=== PATIENT | male | born 1980 | race Caucasian/White ===

== ENCOUNTER 2019-12-09 21:39 | Emergency (ER) | payer OTHER ==
[~2019-12-09] VITALS: Ht 172.7 cm; Wt 83.9 kg
[2019-12-09 21:56] VITALS: BP 110/75
[2019-12-09] MEDS ORDERED: NS 1000ML 1,000 ML STA (22:02)
--- NOTE | 2019-12-09 22:02 | ER.PDOC ---
General Chief Complaint: Requesting Medical Care Stated Complaint: ABD PAIN Time seen by MD: 21:55 Source: patient Exam Limitations: no limitations History of Present Illness Initial Comments Pt c/o persistent thirst, generalized malaise, abdominal discomfort x 4 days. Today he noted discharge from his penis (possible exposure to STD) Timing/Duration: 1 week Severity/Quality: moderate Radiation: no radiation Associated Symptoms: denies symptoms Allergies: Coded Allergies: No Known Allergies (Unverified , 12/09/19) Vital Signs First Vital Signs Date Time Temp Pulse Resp B/P (MAP) Pulse Ox O2 Delivery O2 Flow Rate FiO2 12/09/19 21:56 98.1 75 16 12/09/19 21:56 97 12/09/19 21:56 110/75 (87) Room Air Last Vital Signs Date Time Temp Pulse Resp B/P (MAP) Pulse Ox O2 Delivery O2 Flow Rate FiO2 12/09/19 21:56 98.1 75 16 110/75 (87) 97 Room Air Past Medical History Medical History: no pertinent history Surgical History: no surgical history Constitutional: malaise EENTM: no symptoms reported Respiratory: no symptoms reported Cardiovascular: no symptoms reported Gastrointestinal: abdominal pain Musculoskeletal: no symptoms reported Skin: no symptoms reported Physical Exam General Appearance: No Apparent Distress, WD/WN Respiratory: lungs clear, normal breath sounds, no respiratory distress, no accessory muscle use, respiratory distress Cardiovascular: Regular Rate, Rhythm Gastrointestinal: Non Tender, Hypoactive bowel sounds Extremities: Non-Tender, Normal Inspection, No Pedal Edema Neurologic/Psychiatric: No Motor/Sensory Deficits, Alert, Normal Mood/Affect Skin: Normal Color, Warm/Dry Lymphatic: No Adenopathy Results/Orders Results/Orders Orders - PABLO RENTERIA DO Cbc With Auto Diff (12/09/19 22:02) Comprehensive Metabolic Panel (12/09/19 22:02) Amylase (12/09/19 22:02) Lipase (12/09/19 22:02) Helicobacter Pylori (12/09/19 22:02) Urinalysis (12/09/19 22:02) Saline Lock (12/09/19 22:02) 0.9 % Sodium Chloride (Ns 1000ml) (12/09/19 22:02) Ondansetron Hcl/Pf (Zofran) (12/09/19 22:30) Ceftriaxone Sodium (Rocephin) (12/09/19 22:30) Azithromycin (Zithromax) (12/09/19 22:30) Ceftriaxone Sodium (Rocephin) (12/09/19 23:01) Vital Signs Date Time Temp Pulse Resp B/P (MAP) Pulse Ox O2 Delivery O2 Flow Rate FiO2 12/09/19 21:56 98.1 75 16 110/75 (87) 97 Room Air 12/09/19 21:56 98.1 75 16 97 12/09/19 21:56 98.1 75 16 Administered Medications Medications (Trade) Dose Ordered Sig/Mariela Route PRN Reason Start Time Stop Time Status Last Admin Dose Admin Ceftriaxone Sodium 1 gm/ Sodium Chloride 100 ml @ 100 mls/hr STAT IV 12/09/19 22:30 01/08/20 22:29 UNV 12/09/19 23:10 100 MLS/HR Ondansetron HCl (Zofran) 4 mg STAT ONCE IV 12/09/19 22:30 12/09/19 22:31 UNV 12/09/19 23:10 4 MG Sodium Chloride 1,000 ml @ 0 mls/hr Q0M STAT IV 12/09/19 22:02 12/09/19 22:03 UNV 12/09/19 23:10 1,200 MLS/HR Laboratory Tests Test 12/09/19 22:15 White Blood Count 9.0 10^3/uL (4.5-11.0) Red Blood Count 4.93 10^6/uL (4.50-5.90) Hemoglobin 15.0 g/dL (13.9-16.3) Hematocrit 41.3 % (37.0-53.0) Mean Corpuscular Volume 83.8 fL (78-100) Mean Corpuscular Hemoglobin 30.4 pg (26-34) Mean Corpuscular Hemoglobin Concent 36.3 g/dL (33-36.5) Red Cell Distribution Width 12.0 % (11.5-14.5) Platelet Count 283 10^3/uL (150-400) Mean Platelet Volume 8.8 fL (7.8-11.0) Neutrophils (%) (Auto) 52.6 % (41.0-85.0) Lymphocytes (%) (Auto) 38.0 % (24.0-44.0) Monocytes (%) (Auto) 7.1 % (5.0-12.0) Neutrophils # (Auto) 4.7 10^3/uL (1.8-7.7) Lymphocytes # (Auto) 3.43 10^3/uL1 (1.0-4.8) Monocytes # (Auto) 0.6 10^3/uL (0.3-0.8) Absolute Immature Granulocyte (auto 0.02 10^3 u/L (0-2) Absolute Eosinophils (auto) 0.2 10^3/uL (0.0-0.2) Immature Granulocytes % 0.20 % (0.00-0.50) Eosinophils % 1.8 % (0.0-5.0) Basophils % 0.3 % (0.0-0.2) H Basophils # 0.0 10^3/uL (0.0-0.1) Sodium Level 140 mmol/L (132-145) Potassium Level 3.8 mmol/L (3.6-5.2) Chloride Level 105.0 mmol/L (96-109) Carbon Dioxide Level 26.7 mmol/L (20.0-32) Anion Gap 12.1 Blood Urea Nitrogen 14 mg/dL (7-18) Creatinine 1.06 mg/dL (0.59-1.40) Estimated GFR () 94.6 (>/=60) Est GFR (CKD-EPI)(Non-Afr Egyptian) 78.2 (>/=60) BUN/Creatinine Ratio 13.0 Glucose Level 92 mg/dL (70-110) Calcium Level 8.5 mg/dL (8.4-10.5) Total Bilirubin 0.4 mg/dL (0.2-1.0) Aspartate Amino Transferase (AST) 19 U/L (0-35) Alanine Aminotransferase (ALT) 24 U/L (12-78) Alkaline Phosphatase 87 U/L (50-136) Total Protein 6.8 g/dL (6.4-8.2) Albumin 3.9 g/dL (3.4-5.0) Globulin 2.9 Amylase Level 41 U/L (25-115) Lipase 155 U/L (114-286) Helicobacter pylori Screen NEGATIVE (NEGATIVE) Progress Progress patient refused Azithromycin. We will RX doxy to cover potential chlamydia. Labs return normal. Course Vitals & review Data Vital Sign - Last 24 Hours 12/09/19 12/09/19 12/09/19 21:56 21:56 21:56 Temp 98.1 98.1 98.1 Pulse 75 75 75 Resp 16 16 16 B/P (MAP) 110/75 (87) Pulse Ox 97 97 O2 Delivery Room Air Laboratory Tests Test 12/09/19 22:15 White Blood Count 9.0 10^3/uL Red Blood Count 4.93 10^6/uL Hemoglobin 15.0 g/dL Hematocrit 41.3 % Mean Corpuscular Volume 83.8 fL Mean Corpuscular Hemoglobin 30.4 pg Mean Corpuscular Hemoglobin Concent 36.3 g/dL Red Cell Distribution Width 12.0 % Platelet Count 283 10^3/uL Mean Platelet Volume 8.8 fL Neutrophils (%) (Auto) 52.6 % Lymphocytes (%) (Auto) 38.0 % Monocytes (%) (Auto) 7.1 % Neutrophils # (Auto) 4.7 10^3/uL Lymphocytes # (Auto) 3.43 10^3/uL1 Monocytes # (Auto) 0.6 10^3/uL Absolute Immature Granulocyte (auto 0.02 10^3 u/L Absolute Eosinophils (auto) 0.2 10^3/uL Immature Granulocytes % 0.20 % Eosinophils % 1.8 % Basophils % 0.3 % Basophils # 0.0 10^3/uL Sodium Level 140 mmol/L Potassium Level 3.8 mmol/L Chloride Level 105.0 mmol/L Carbon Dioxide Level 26.7 mmol/L Anion Gap 12.1 Blood Urea Nitrogen 14 mg/dL Creatinine 1.06 mg/dL Estimated GFR () 94.6 Est GFR (CKD-EPI)(Non-Afr Egyptian) 78.2 BUN/Creatinine Ratio 13.0 Glucose Level 92 mg/dL Calcium Level 8.5 mg/dL Total Bilirubin 0.4 mg/dL Aspartate Amino Transf (AST/SGOT) 19 U/L Alanine Aminotransferase (ALT/SGPT) 24 U/L Alkaline Phosphatase 87 U/L Total Protein 6.8 g/dL Albumin 3.9 g/dL Globulin 2.9 Amylase Level 41 U/L Lipase 155 U/L Helicobacter pylori Screen NEGATIVE Current Medications Medications (Trade) Dose Ordered Sig/Mariela PRN Reason Start Time Stop Time Status Last Admin Ceftriaxone Sodium 1 gm/ Sodium Chloride 100 ml @ 100 mls/hr STAT 12/09/19 22:30 01/08/20 22:29 UNV 12/09/19 23:10 Sodium Chloride 1,000 ml @ 0 mls/hr Q0M STAT 12/09/19 22:02 12/09/19 22:03 UNV 12/09/19 23:10 Departure Time of Disposition: 23:50 Disposition: 01 HOME, SELF-CARE Impression: Primary Impression: Malaise and fatigue Additional Impression: Possible exposure to STD Condition: Improved Patient Instructions: Fatigue Referrals: ALTON PARRA (PCP) PRIMARY CARE PROVIDER Additional Instructions: Take the antibiotic as prescribed until all gone. Drink plenty of fluids. Return to ER if symptoms worsen. Follow up with your doctor. Duration or Time Spent with Pa: 15 min Problem Qualifiers PABLO RENTERIA DO Dec 09, 2019 22:02
[2019-12-09 22:20] LABS: BASOPHIL % 0.3 % (0.0-0.2); EOSINOPHIL # 0.2 10^3/uL (0.0-0.2); EOSINOPHIL % 1.8 % (0.0-5.0); LYMPHOCYTES # 3.43 10^3/uL1 (1.0-4.8); MEAN CORP HGB 30.4 pg (26-34); MONOCYTES # 0.6 10^3/uL (0.3-0.8); MONOCYTES % 7.1 % (5.0-12.0); NEUTROPHIL # 4.7 10^3/uL (1.8-7.7); NEUTROPHILS % 52.6 % (41.0-85.0); PLATELET COUNT 283 10^3/uL (150-400)
[2019-12-09] MEDS ORDERED: ZITHROMAX PO ONE (22:30)
[2019-12-09] MEDS ORDERED: ZOFRAN IV ONE (22:30)
[2019-12-09] MEDS ORDERED: ROCEPHIN 1 GM in NS 100ML 100 ML IV SCH (22:30)
[2019-12-09 22:52] LABS: CALCIUM 8.5 mg/dL (8.4-10.5); CARBON DIOXIDE 26.7 mmol/L (20.0-32)
[2019-12-09 23:00] VITALS: BP 115/69
[2019-12-09] MEDS ORDERED: NS 1000ML 1,000 ML ONE (23:00)
[2019-12-09] MEDS ORDERED: ZITHROMAX ONE (23:00)
[2019-12-09] MEDS ORDERED: ZOFRAN ONE (23:01)
[2019-12-09] MEDS ORDERED: ROCEPHIN ONE (23:01)
[2019-12-10] VITALS: BP 119/86
--- NOTE | 2019-12-10 00:18 | NUR ---
IV DC'D TIP INTACT, NO BLEEDING
== END 2019-12-10 00:20 | disposition home or self-care (01) ==
LOC: ER 21:39
DX: R53.83 Other fatigue (principal); Z79.899 Other long term (current) drug therapy
CPT/HCPCS: 36415; 80053; 82150; 83690; 85025; 86677; 96365; 96375; 99284; J0696; J2405; J7030; Q0144